=== PATIENT | female | born 1965 | race Caucasian/White ===

== ENCOUNTER → 2016-09-09 | Outpatient (CLI) | payer BC | LOC: BRMIMAGING 13:24 | PROVIDERS: ATTEND Physician Assistant Medical | DX: Z12.31 Encounter for screening mammogram for malignant neoplasm of breast (principal) | CPT/HCPCS: G0202 ==

== ENCOUNTER → 2016-09-17 | Outpatient (CLI) | payer BC | LOC: BRMIMAGING 09:33 | PROVIDERS: ATTEND Physician Assistant Medical | DX: N63 Unspecified lump in breast (principal) | CPT/HCPCS: G0206 ==

== ENCOUNTER → 2017-09-28 | Outpatient (CLI) | payer BC, OTHER | LOC: BRMIMAGING 11:37 | PROVIDERS: ATTEND Physician Assistant Medical | DX: R05 Cough (principal) | CPT/HCPCS: 71046-PO ==

== ENCOUNTER → 2017-10-20 | Outpatient (CLI) | payer BC | LOC: BRMIMAGING 11:20 | PROVIDERS: ATTEND Physician Assistant Medical | DX: Z12.31 Encounter for screening mammogram for malignant neoplasm of breast (principal) ==

== ENCOUNTER → 2017-10-31 | Outpatient (CLI) | payer BC | LOC: CIMAGING 12:56 | PROVIDERS: ATTEND Physician Assistant Medical | DX: R92.8 Other abnormal and inconclusive findings on diagnostic imaging of breast (principal) | CPT/HCPCS: 76641-PO ==

== ENCOUNTER → 2018-10-24 | Outpatient (CLI) | payer BC | LOC: CIMAGING 11:16 ==